=== PATIENT | male | born 1990 | race African-American/Black ===

== ENCOUNTER 2023-10-01 11:11 | Emergency (ER) | payer SELFPAY ==
[2023-10-01 11:22] VITALS: BP 128/83; PULSE 77; RESP 18; TEMP 98; BMI 26.2
== END 2023-10-01 14:14 | disposition home or self-care (01) ==
LOC: JER 11:11
DX: Z76.0 Encounter for issue of repeat prescription (principal)
CPT/HCPCS: 99281-25